=== PATIENT | male | born 2000 | race African-American/Black ===

== ENCOUNTER 2019-09-06 13:27 | Emergency (ER) | payer OTHER ==
[~2019-09-06] VITALS: Ht 170.2 cm; Wt 70.4 kg
[2019-09-06 13:28] VITALS: BP 135/78
[2019-09-06] MEDS ORDERED: IBUP-1022 PO ×2 (13:35)
[2019-09-06] MEDS ORDERED: PERC5TAB12 PO (14:03)
== END 2019-09-06 14:12 | disposition home or self-care (01) ==
LOC: M ED 13:27
DX: Z76.0 Encounter for issue of repeat prescription (principal); M25.511 Pain in right shoulder; Z98.890 Other specified postprocedural states; Z88.1 Allergy status to other antibiotic agents

== ENCOUNTER 2019-09-22 13:45 | Emergency (ER) | payer OTHER ==
[~2019-09-22] VITALS: Ht 170.2 cm; Wt 68.2 kg
[2019-09-22 13:45] VITALS: BP 121/70
[~2019-09-22 13:45] MED LIST: IBUP-1022 PO; PERC5TAB12 PO
[2019-09-22] MEDS ORDERED: tylenol (13:52)
[2019-09-22] MEDS ORDERED: IBUP80TA PO (15:23)
== END 2019-09-22 15:29 | disposition home or self-care (01) ==
LOC: M ED 13:45
DX: G89.18 Other acute postprocedural pain (principal); M25.511 Pain in right shoulder; Z88.8 Allergy status to other drugs, medicaments and biological substances

== ENCOUNTER 2019-12-28 13:29 | Emergency (ER) | payer OTHER ==
[~2019-12-28] VITALS: Ht 170.2 cm; Wt 75.1 kg
[~2019-12-28 13:29] MED LIST changes: +IBUP80TA PO; +tylenol
[2019-12-28 13:30] VITALS: BP 132/76
[2019-12-28] MEDS ORDERED: PSEUDOEPHEDRINE 30 MG TAB PO ONE (14:45)
[2019-12-28] MEDS ORDERED: MECLIZINE 25 MG TABLET PO ONE (14:45)
[2019-12-28 15:30] LABS: CHLAMYDIA DNA AMPLIFICATION NEGATIVE (NEGATIVE); GC DNA AMPLIFICATION NEGATIVE (NEGATIVE)
[2019-12-28] MEDS ORDERED: MECL1TAB31 PO (15:33)
== END 2019-12-28 16:09 | disposition home or self-care (01) ==
LOC: M ED 13:29
DX: H81.10 Benign paroxysmal vertigo, unspecified ear (principal); Z88.8 Allergy status to other drugs, medicaments and biological substances

== ENCOUNTER 2020-01-23 08:05 | Emergency (ER) | payer OTHER ==
[~2020-01-23] VITALS: Ht 170.2 cm; Wt 73.7 kg
[~2020-01-23 08:05] MED LIST changes: +MECL1TAB31 PO
[2020-01-23 08:07] VITALS: BP 133/72
[2020-01-23] MEDS ORDERED: ONDA4TAB6 PO (08:21)
[2020-01-23] MEDS ORDERED: ONDANSETRON 4 MG ORAL DISINTEGRATING TAB (Q0162 PER 1MG) PO ONE (08:30)
== END 2020-01-23 09:25 | disposition home or self-care (01) ==
LOC: M ED 08:05
DX: R11.2 Nausea with vomiting, unspecified (principal); R19.7 Diarrhea, unspecified; Z88.1 Allergy status to other antibiotic agents
CPT/HCPCS: 99282; Q0162

== ENCOUNTER 2020-01-25 14:11 | Emergency (ER) | payer OTHER ==
[~2020-01-25] VITALS: Ht 170.2 cm; Wt 72.9 kg
[~2020-01-25 14:11] MED LIST changes: +ONDA4TAB6 PO
[2020-01-25] MEDS ORDERED: ALBUTEROL 90 MCG/ACT 8GM HFA INHALER INH ONE (15:15)
[2020-01-25] MEDS ORDERED: VENTAER INH (15:47)
[2020-01-25 16:15] VITALS: BP 127/72
== END 2020-01-25 16:18 | disposition home or self-care (01) ==
LOC: M ED 14:11
DX: J45.901 Unspecified asthma with (acute) exacerbation (principal); Z79.51 Long term (current) use of inhaled steroids; Z88.8 Allergy status to other drugs, medicaments and biological substances